=== PATIENT | male | born 1975 | race Caucasian/White ===

== ENCOUNTER 2018-11-08 06:38 | Emergency (ER) | payer OTHER ==
[2018-11-08] MEDS ORDERED: KETOROLAC TROMETHAMINE 60 MG/2 ML VIAL IM ONE (07:34)
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
[2018-11-08 08:23] VITALS: BP 127/71
== END 2018-11-08 08:05 | disposition home or self-care (01) ==
LOC: ED 06:38
DX: Z04.1 Encounter for examination and observation following transport accident (principal); R07.89 Other chest pain; S30.811A Abrasion of abdominal wall, initial encounter; V49.00XA Driver injured in collision with unspecified motor vehicles in nontraffic accident, initial encounter; Y93.89 Activity, other specified; Y92.481 Parking lot as the place of occurrence of the external cause
CPT/HCPCS: 93005; 96372; 99283; 99284; J1885